=== PATIENT | male | born 1970 | race Caucasian/White ===

== ENCOUNTER 2018-06-09 01:43 | Inpatient (IN) | payer OTHER ==
[~2018-06-09] VITALS: Ht 180.3 cm; Wt 78.8 kg
[~2018-06-09 01:43] MED LIST: BUSPAR5 MG; CARAFATE100 MG/ML PO; NAPROSYN500 MG PO; OMEPRAZOLE20 MG PO; VICODIN 5-3001 EACH PO
[2018-06-09 02:10] LABS: BASOPHIL (%) 0.3 % (0-1); EOSINOPHIL (%) 0 % (0-5); HEMATOCRIT 46.8 % (38.0-50.0); HEMOGLOBIN 16.1 G/DL (12.5-16.6); IMMATURE GRANULOCYTE (%) 0.3 % (0.0-0.7); MCH 33.2 PG (29.0-34.0); MCHC 34.4 G/DL (30.0-36.0); MCV 96.5 FL (86-99); MONOCYTE (%) 4.6 % (3-12); MONOCYTE COUNT 0.5 K/uL (0-0.8); NEUTROPHIL (%) 84.8 % (45-76); NEUTROPHIL COUNT 8.2 K/uL (1.8-6.4); PLATELET COUNT 279 K/uL (156-360); RBC DIS.WIDTH-SD 46.4 % (39-53); RED BLOOD COUNT 4.85 M/uL (4.00-5.50); WHITE BLOOD COUNT 9.7 K/uL (4.1-10.2)
[2018-06-09 02:24] LABS: AMYLASE 39 IU/L (1-118); CHLORIDE 108 mEq/L (99-109); POTASSIUM 3.9 mEq/L (3.7-5.4); SODIUM 142 mEq/L (136-147)
[2018-06-09 02:25] LABS: GLUCOSE 151 mg/dL (70-99)
[2018-06-09 02:29] LABS: CREATININE 0.9 mg/dL (0.6-1.3); GFR ESTIMATE (CALCULATED) > 59 mL/min/ (58.99-99999); SERUM ETHYL ALCOHOL 200 mg/dL
[2018-06-09 02:30] LABS: UREA NITROGEN (BUN) 13 mg/dL (9-23)
[2018-06-09 02:32] LABS: LIPASE 42 U/L (1.0-51.0)
[2018-06-09 04:44] LABS: APPEARANCE CLEAR ((CLEAR)); BILIRUBIN NEGATIVE; BLOOD NEGATIVE; COLOR STRAW ((YELLOW)); GLUCOSE (STRIP) 50; KETONES NEGATIVE; LEUKOCYTES NEGATIVE; NITRITE NEGATIVE; PROTEIN (STRIP) NEGATIVE; SPECIFIC GRAVITY 1.033 (1.000-1.030); UCUL ADDED? NO; UROBILINOGEN 0.2 MG/DL (0.2-1.0)
[2018-06-09 05:00] VITALS: BP 146/93
[2018-06-09 05:14] LABS: AMPHETAMINE NEGATIVE (500 ng/mL); BARBITURATES NEGATIVE (200 ng/mL); BENZODIAZEPINES NEGATIVE (150 ng/mL); BUPRENORPHINE NEGATIVE (10 ng/mL); COCAINE NEGATIVE (150 ng/mL); METHADONE NEGATIVE (200 ng/mL); METHAMPHETAMINE NEGATIVE (500 ng/mL); OPIATES (MORPHINE) NEGATIVE (100 ng/mL); OXYCODONE NEGATIVE (100 ng/mL); PHENCYCLIDINE NEGATIVE (25 ng/mL); PROPOXYPHENE NEGATIVE (300 ng/mL); THC CANNABINOIDS NEGATIVE (50 ng/mL); TRICYCLIC ANTIDEPRESSANTS NEGATIVE (300 ng/mL)
[2018-06-09 07:38] VITALS: BP 140/86
[2018-06-09 11:32] VITALS: BP 153/98
[2018-06-09] MEDS ORDERED: OMEPRAZOLE40 M1 PO (12:29)
[2018-06-09] MEDS ORDERED: PREDNISONE10 MG PO (12:31)
[2018-06-09] MEDS ORDERED: LORATADINE10 M2 PO (12:31)
[2018-06-09] MEDS ORDERED: NEOMYCIN-POLYMY10 M1 BOTH EARS (12:33)
[2018-06-09] MEDS ORDERED: VISINE15 ML BOTH EYES (12:34)
[2018-06-09] MEDS ORDERED: SILDENAFIL CIT100 MG PO (12:34)
[2018-06-09] MEDS ORDERED: HYDROCORTISONE30 G2 TP (12:37)
[2018-06-09 16:07] VITALS: BP 153/95
[2018-06-09 19:34] VITALS: BP 145/92
[2018-06-09 23:45] VITALS: BP 151/89
[2018-06-10 04:45] VITALS: BP 169/98
[2018-06-10 07:24] VITALS: BP 159/94
[2018-06-10 11:09] VITALS: BP 140/91
[2018-06-10 15:03] VITALS: BP 158/99
[2018-06-10 21:01] VITALS: BP 141/04; BP 141/74
[2018-06-10 23:09] VITALS: BP 129/75
[2018-06-11 03:45] VITALS: BP 137/90
[2018-06-11 08:14] VITALS: BP 150/98
[2018-06-11 11:42] VITALS: BP 149/90
[2018-06-11 14:53] VITALS: BP 136/88
[2018-06-11 19:31] VITALS: BP 138/93
[2018-06-11 23:14] VITALS: BP 145/97
[2018-06-12 04:02] VITALS: BP 121/77
[2018-06-12 07:51] VITALS: BP 126/85
[2018-06-12 11:06] VITALS: BP 134/88
[2018-06-12 15:47] VITALS: BP 129/89
[2018-06-12 19:29] VITALS: BP 132/82
[2018-06-12 23:18] VITALS: BP 119/74
[2018-06-13 04:10] VITALS: BP 134/86
[2018-06-13 08:42] VITALS: BP 130/89
[2018-06-13] MEDS ORDERED: DOCUSATE SODIU100 MG PO (09:35)
[2018-06-13] MEDS ORDERED: OXYCODONE-APAP1 EACH PO (09:40)
[2018-06-13] MEDS ORDERED: ATROVENT H200 INHALA IH (09:48)
== END 2018-06-13 14:10 | disposition home or self-care (01) | DRG 200 ==
LOC: EME → TRA 01:43 → EDBD 01:43 → EME 01:43 → EDOF 02:45 → 3EAST 02:45 → ENRESERV 04:09 → 3EAST 05:09
PROVIDERS: Emergency Medicine
PROC: 0W9930Z Drainage of Right Pleural Cavity with Drainage Device, Percutaneous Approach (ICD-10-PCS; principal; 2018-06-09)
PROC: 0W9930Z Drainage of Right Pleural Cavity with Drainage Device, Percutaneous Approach (ICD-10-PCS; 2018-06-09)
DX: S27.0XXA Traumatic pneumothorax, initial encounter (principal); S22.41XA Multiple fractures of ribs, right side, initial encounter for closed fracture; W10.9XXA Fall (on) (from) unspecified stairs and steps, initial encounter; F10.129 Alcohol abuse with intoxication, unspecified; Y90.7 Blood alcohol level of 200-239 mg/100 ml; F17.210 Nicotine dependence, cigarettes, uncomplicated; K21.9 Gastro-esophageal reflux disease without esophagitis; F41.9 Anxiety disorder, unspecified; Z88.1 Allergy status to other antibiotic agents; Z88.5 Allergy status to narcotic agent
CPT/HCPCS: 32557; 70450; 71045; 71046; 71260; 72125; 72128; 74177; 80048; 81003; 82150; 83690; 83735; 85025; 86850; 86900; 86901; 94640; 94669; 94799; 99281; 99285; C1729; C1769; C1894; G0480; J1170; J1650; J1885; J2060; J3010; J3411; J7030; J7040; J7512